=== PATIENT | female | born 1935 | race Caucasian/White ===

== ENCOUNTER → 2018-09-10 | Outpatient (CLI) | payer MEDICARE, BC ==
[~2018-09-10] MED LIST: REGADENOSON 0.4 MG/5 ML SYRINGE ONE
== END | disposition home or self-care (01) ==
LOC: CFH 12:02
PROVIDERS: ATTEND Internal Medicine Cardiovascular Disease
DX: I99.8 Other disorder of circulatory system (principal); I10 Essential (primary) hypertension; R94.31 Abnormal electrocardiogram [ECG] [EKG]; R42 Dizziness and giddiness
CPT/HCPCS: 78452; 93017; A9502; J2785

== ENCOUNTER 2018-09-30 09:58 | Observation (INO) | payer MEDICARE, BC ==
[2018-09-28 11:33] LABS: BASOPHILS # (AUTO) 0.04 x10^3/uL (0-0.1); BASOPHILS % (AUTO) 1 % (0-1); EOSINOPHILS # (AUTO) 0.25 x10^3/uL (0-0.4); MD NO
[2018-09-28 11:42] LABS: EOSINOPHILS % (AUTO) 3 % (1-7); LYMPHOCYTES # (AUTO) 1.82 x10^3/uL (1-3.4); LYMPHOCYTES % (AUTO) 22 % (22-44); MEAN CORPUSCULAR HEMOGLOBIN 27.2 pg (27.0-34.8); MEAN CORPUSCULAR HGB CONC 32.6 g/dL (32.4-35.8); MEAN CORPUSCULAR VOLUME 83.4 fL (80-100); MEAN PLATELET VOLUME 7.6 fL (7.4-10.4); MONOCYTES # (AUTO) 0.64 x10^3/uL (0.2-0.8); MONOCYTES % (AUTO) 8 % (2-9); NEUTROPHILS # (AUTO) 5.51 x10^3/uL (1.8-6.8); NEUTROPHILS % (AUTO) 67 % (42-75); PLATELET COUNT 377 x10^3/uL (130-400); RED BLOOD COUNT 4.97 x10^6/uL (3.82-5.3); RED CELL DISTRIBUTION WIDTH 15.4 % (9.6-15.2)
[2018-09-28 11:44] LABS: ANION GAP 4 mmol/L (5-15); CALCIUM 8.7 mg/dL (8.5-10.1); CHLORIDE 107 mmol/L (98-107); CREATININE 0.62 mg/dL (0.55-1.02)
[~2018-09-30] VITALS: Ht 162.6 cm; Wt 100.0 kg
[~2018-09-30 09:58] MED LIST changes: +GLIM4TAB PO; +LOSA25TA25 PO; -REGADENOSON 0.4 MG/5 ML SYRINGE ONE
[2018-09-30] MEDS ORDERED: MIDAZOLAM 1 MG/ML, 2ML ONE (12:19)
[2018-09-30] MEDS ORDERED: VERAPAMIL 2.5 MG/ML, 2ML ONE (12:19)
[2018-09-30] MEDS ORDERED: FENTANYL PF 100 MCG/2ML ONE (12:19)
[2018-09-30] MEDS ORDERED: HEPARIN 1,000 UNITS/ML, 10ML ONE (12:19)
[2018-09-30] MEDS ORDERED: LIDOCAINE-MPF 1%, 5ML ONE (12:20)
[2018-09-30] MEDS ORDERED: MIDAZOLAM 1 MG/ML, 5ML ONE (12:37)
[2018-09-30] MEDS ORDERED: TICAGRELOR 90 MG TABLET ONE (12:44)
[2018-09-30] MEDS ORDERED: BIVALIRUDIN 250 MG ONE (12:45)
[2018-09-30] MEDS: SODIUM CHLORIDE 0.9% 1,000 ML IV SCH ×2 (13:41→21:41)
[2018-09-30] MEDS ORDERED: BISACODYL 5 MG EC TABLET PO PRN (14:00)
[2018-09-30] MEDS ORDERED: ZOLPIDEM 5MG TABLET PO PRN (14:00)
[2018-09-30] MEDS ORDERED: ONDANSETRON 2MG/ML, 2ML IVPush PRN (14:00)
[2018-09-30] MEDS ORDERED: CLOPIDOGREL 75 MG TABLET ONE (15:19)
[2018-09-30] MEDS ORDERED: CLOPIDOGREL 75 MG TABLET PO SCH (15:30)
[2018-09-30 16:20] VITALS: BP 149/83
[2018-09-30] MEDS ORDERED: CLOPIDOGREL 75 MG TABLET PO ONE (16:30)
[2018-09-30] MEDS ORDERED: DIPHENHYDRAMINE 25 MG CAPSULE PO PRN (17:00)
[2018-09-30] MEDS: ACETAMINOPHEN 325 MG TABLET PO PRN ×2 (17:18→20:40)
[2018-09-30] MEDS: METOPROLOL TARTRATE 25 MG TABLET PO SCH (18:30)
[2018-09-30 19:19] VITALS: BP 146/70
[2018-09-30] MEDS: GLIMEPIRIDE 4 MG TABLET PO SCH (20:40)
[2018-09-30] MEDS ORDERED: TICAGRELOR 90 MG TABLET PO SCH (21:00)
[2018-09-30] MEDS ORDERED: LOSARTAN 25MG TABLET PO SCH (21:00)
[2018-09-30] MEDS ORDERED: ATORVASTATIN 40 MG TABLET PO SCH (21:00)
[2018-09-30] MEDS ORDERED: TRAZODONE 50MG TABLET PO PRN (23:00)
[2018-10-01 03:57] VITALS: BP 158/79
[2018-10-01] MEDS: SODIUM CHLORIDE 0.9% 1,000 ML IV SCH (04:05)
[2018-10-01 04:58] LABS: ANION GAP 3 mmol/L (5-15); CALCIUM 8.4 mg/dL (8.5-10.1); CHLORIDE 110 mmol/L (98-107); CREATININE 0.53 mg/dL (0.55-1.02)
[2018-10-01] MEDS: METOPROLOL TARTRATE 25 MG TABLET PO SCH (06:21)
[2018-10-01] MEDS: ACETAMINOPHEN 325 MG TABLET PO PRN (06:21)
[2018-10-01] MEDS ORDERED: NITR0.4T28 SL (08:53)
[2018-10-01] MEDS ORDERED: ASPI81TA45 PO (08:53)
[2018-10-01] MEDS ORDERED: METO25TA35 PO (08:53)
[2018-10-01] MEDS ORDERED: CLOP75TA PO (08:53)
[2018-10-01] MEDS ORDERED: ATOR40TA78 PO (08:53)
[2018-10-01] MEDS ORDERED: CLOPIDOGREL 75 MG TABLET PO SCH (09:00)
[2018-10-01] MEDS ORDERED: LOSARTAN 25MG TABLET PO SCH (09:00)
[2018-10-01] MEDS ORDERED: ASPIRIN 81 MG TABLET EC PO SCH (09:00)
[2018-10-01 09:20] VITALS: BP 131/75
[2018-10-01] MEDS: GLIMEPIRIDE 4 MG TABLET PO SCH (10:01)
== END 2018-10-01 10:34 | disposition home or self-care (01) ==
LOC: CACL 09:58 → ORIP 13:41 → 5SO 16:16 → DCLOUNGE 10-01 10:22
PROVIDERS: ADMIT Internal Medicine Cardiovascular Disease; ATTEND Internal Medicine Cardiovascular Disease
DX: I25.119 Atherosclerotic heart disease of native coronary artery with unspecified angina pectoris (principal)
CPT/HCPCS: 36415; 80048; 85014; 85018; 85025; 93005; 93458; 99156; 99157; C1725; C1769; C1874; C1887; C1894; C9600; C9601; G0378; J0583; J1644; J2250; J3010; Q0163; Q9967

== ENCOUNTER 2019-06-09 18:54 | Emergency (ER) | payer MEDICARE, BC ==
[~2019-06-09] VITALS: Ht 162.6 cm; Wt 90.0 kg
[~2019-06-09 18:54] MED LIST changes: +ASPI81TA45 PO; +ATOR40TA78 PO; +CLOP75TA PO; +METO25TA35 PO; +NITR0.4T28 SL
[2019-06-09] MEDS ORDERED: L.E.T SOLUTION TP ONE ×3 (19:02→19:30)
--- NOTE | 2019-06-09 19:03 | NUR ---
PT BIB [facility] S/P MECHANICAL UNWITNESSED FALL, TRIPPED INTO PLANTER. APPROX 2 INCH R FOREHEAD LAC. LARGE SKIN TEAR R KNEE. ON PLAVIX D/T STENTS. A&OX4 GCS 15. DENIES LOC. C/O R SORE RIBS. OWUSU. EQUAL STRENGTH. PEARRL. VSS. DR. MULLEN AT BEDSIDE FOR EVAL. PLAN FOR SUTURES AND HEAD CT. PT AWARE OF POC. DENIES PAIN AT THIS MOMENT. TOPICAL LIDO APPLIED TO SKIN TEAR. FALL PRECS IN PLACE. CALL NGUYỄN IN REACH.
--- NOTE | 2019-06-09 19:15 | NUR ---
PT'S DAUGHTER AT BEDSIDE. L.E.T. APPLIED TO LEG, SALINE AND DRSG JOHN TO FOREHEAD.
--- NOTE | 2019-06-09 19:20 | NUR ---
PT TO CT.
[2019-06-09] MEDS ORDERED: LIDOCAINE 1%-EPI 1:100K, 20ML INFIL ONE ×2 (19:30)
[2019-06-09] MEDS ORDERED: DIPH,PERTUSS(ACELL),TET VAC/PF 0.5 ML IM-VACC ONE ×2 (19:30→20:38)
[2019-06-09] MEDS ORDERED: LIDOCAINE 1%-EPI 1:100K, 20ML ONE (19:37)
[2019-06-09] MEDS ORDERED: NEOSPORIN OINT. PKT 1 PACKET ONE ×2 (19:37→20:38)
--- NOTE | 2019-06-09 20:05 | NUR ---
PA AT BEDSIDE, SUTURING PT. VSS.
[2019-06-09 20:50] VITALS: BP 159/67
== END 2019-06-09 21:05 | disposition home or self-care (01) ==
LOC: ED 20:15
DX: S01.81XA Laceration without foreign body of other part of head, initial encounter (principal); S61.011A Laceration without foreign body of right thumb without damage to nail, initial encounter; S20.211A Contusion of right front wall of thorax, initial encounter; S80.01XA Contusion of right knee, initial encounter; S60.221A Contusion of right hand, initial encounter; I10 Essential (primary) hypertension; E11.9 Type 2 diabetes mellitus without complications; E78.5 Hyperlipidemia, unspecified; I25.10 Atherosclerotic heart disease of native coronary artery without angina pectoris; J45.909 Unspecified asthma, uncomplicated; M19.90 Unspecified osteoarthritis, unspecified site; W01.0XXA Fall on same level from slipping, tripping and stumbling without subsequent striking against object, initial encounter; Y93.89 Activity, other specified; Y92.098 Other place in other non-institutional residence as the place of occurrence of the external cause; Y99.8 Other external cause status
CPT/HCPCS: 12031; 12051; 70450; 90471; 90715; 93005; 99285

== ENCOUNTER 2019-11-27 17:22 | Emergency (ER) | payer MEDICARE, BC ==
[~2019-11-27] VITALS: Ht 160 cm; Wt 90.0 kg
--- NOTE | 2019-11-27 17:40 | NUR ---
PT AMBULATED TO THE ROOM W/ A STEADY GAIT.
--- NOTE | 2019-11-27 17:49 | NUR ---
THIS IS A 83 YO F W/ C/O GLF ON FRIDAY. PT REPORTS HITTING HEAD BUT DENIES LOC. PT REPORTS PAIN IN BILAT KNEES A RT ARM, BRUISING NOTED. PT REPORTS TAKING PLAVIX AND ASPIRIN BUT HAS NOT TAKEN IT SINCE THE FALL. NON COMPLIANT W/ OTHER MEDS. PT RELUCTANT TO PUT ON GOWN. INFORMED THAT PROVIDER COULD EVALUATE HER BEST IF SHE CHANGES. AGREED TO CHANGE INTO GOWN. OFFERED BLANKET, REFUSED. PT STATES SHE WILL ONLY BE SEEN BY AN MD. EDUCATED ON ED PROCESS. SITTING ON GURNEY W/ CALL LIGHT IN REACH AND FAMILY AT BEDSIDE. AWAITING ED EVAL.
--- NOTE | 2019-11-27 18:03 | NUR ---
MAX MELENDREZ IN ROOM.
--- NOTE | 2019-11-27 18:23 | NUR ---
PT AMBULATED TO THE BR W/ A STEADY GAIT. REFUSED TO USE URINE CUP.
--- NOTE | 2019-11-27 18:26 | NUR ---
XR IN ROOM.
--- NOTE | 2019-11-27 18:30 | NUR ---
PT TO CT.
--- NOTE | 2019-11-27 18:50 | NUR ---
PT AMBULATED TO THE BR W/ A STEADY GAIT.
--- NOTE | 2019-11-27 19:00 | NUR ---
PT REPORTS HAVING LOOSE BOWEL MOVEMENT AND STATES "I CAN'T STAY LONG". PT INFORMED SHE CAN LEAVE AT ANY TIME. RESTING ON GURNEY, TALKING ON PHONE. AWAITING XR/US.
[2019-11-27 19:06] VITALS: BP 150/81
--- NOTE | 2019-11-27 19:08 | NUR ---
PT WHEELED TO XR.
--- NOTE | 2019-11-27 19:43 | NUR ---
PT TRANSPORTED TO US FROM XR.
--- NOTE | 2019-11-27 19:46 | NUR ---
PT BACK FROM US. RESTING ON [employer] W/ CALL LIGHT IN REACH, SIDE RAILS UPX2. AWAITING RESULTS.
--- NOTE | 2019-11-27 19:49 | NUR ---
ALL TESTS RESULTED. PT IS UP FOR RECHECK AT THIS TIME.
--- NOTE | 2019-11-27 19:58 | NUR ---
MAX MELENDREZ IN ROOM UPDATING PT ON RESULTS.
--- NOTE | 2019-11-27 20:50 | NUR ---
PATIENT LEFT PRIOR TO RECEIVING DC [facility]. PT WAS INSTRUCTED TO WAIT FOR INSTRUCTIONS WHICH INCLUDES REFERRAL INFORMATION. PHONE NUMBER ON FILE CALLED. SPOKE W/ DAUGHTER. DAUGHTER STATES SHE WILL LET PT KNOW THAT SHE SHOULD RETURN FOR [facility] AND INSTRUCTIONS.
== END 2019-11-27 20:54 | disposition home or self-care (01) ==
LOC: ED 18:00
DX: S42.414A Nondisplaced simple supracondylar fracture without intercondylar fracture of right humerus, initial encounter for closed fracture (principal); S00.83XA Contusion of other part of head, initial encounter; M79.661 Pain in right lower leg; R42 Dizziness and giddiness; E11.9 Type 2 diabetes mellitus without complications; I25.10 Atherosclerotic heart disease of native coronary artery without angina pectoris; E78.5 Hyperlipidemia, unspecified; I10 Essential (primary) hypertension; J45.909 Unspecified asthma, uncomplicated; Z98.61 Coronary angioplasty status; W01.0XXA Fall on same level from slipping, tripping and stumbling without subsequent striking against object, initial encounter; Y93.89 Activity, other specified; Y92.89 Other specified places as the place of occurrence of the external cause; Y99.8 Other external cause status
CPT/HCPCS: 29105; 70450; 70486; 93005; 99285